=== PATIENT | male | born 1985 | race Caucasian/White ===

== ENCOUNTER 2019-02-24 08:46 | Inpatient (IN) | payer SELFPAY | END 2019-02-27 14:15 | disposition home or self-care (01) | DRG 885 | PROVIDERS: Family Provider Nurse Practitioner Family | DX: F22 Delusional disorders (principal); R45.851 Suicidal ideations; Z76.5 Malingerer [conscious simulation]; F60.2 Antisocial personality disorder; Z28.21 Immunization not carried out because of patient refusal ==

== ENCOUNTER 2019-03-03 17:40 | Emergency (ER) | payer SELFPAY | END 2019-03-03 20:48 | disposition home or self-care (01) | PROVIDERS: Family Provider Nurse Practitioner Family | DX: J06.9 Acute upper respiratory infection, unspecified (principal); J01.90 Acute sinusitis, unspecified; J45.909 Unspecified asthma, uncomplicated; F17.210 Nicotine dependence, cigarettes, uncomplicated; Z88.0 Allergy status to penicillin | CPT/HCPCS: 36415; 71045; 80053; 85025; 96372; 99284; J0696; J2001; J2930 ==

== ENCOUNTER 2019-03-19 19:27 | Emergency (ER) | payer MEDICAID, SELFPAY ==
[2019-03-19 19:36] VITALS: BP 146/86; PULSE 125; RESP 18; TEMP 36.6; O2SAT 96; BMI 27.3
--- NOTE | 2019-03-19 19:40 | ED_ITS ---
Entered by Sia Castro, acting as scribe for George Reyes MD HPI - Psych General: Chief Complaint: Seizure Stated Complaint: SEIZURE Time Seen by Provider: 03/19/19 19:39 Source: patient and EMS Mode of arrival: EMS Limitations: no limitations History of Present Illness: HPI Narrative: 33 y/o male presents to the ED with reported seizure. Nurse reported he was lying in still in bed and then proceeded to start shaking. Upon exam pt is sitting up in bed, holding his hand out and looking at the ceiling. Pt states he cannot talk. Pt is very anxious. complaint: other (anxiety) Onset (ago): minute(s) Relieving factors: none Exacerbating factors: none Associated psychiatric symptoms: other Treatments prior to arrival: none Review of Systems Const: Denies: fever or chills Eyes: Denies: change in vision ENMT: Denies: throat pain or mouth pain Card: Denies: chest pain Resp: Denies: shortness of breath GI: Denies: abdominal pain, nausea, vomiting or diarrhea Musc: Denies: back pain or joint pain Skin/Breast: Denies: rash Neuro: Denies: headache Psych: Reports: anxiety Endo: Denies: excessive urination Colt/Lymph: Denies: easy bruising All/Imm: Denies: hives PFSH ED PFSH: Statuses (acute, chronic, etc) shown below reflect problem list status as previously entered and may not be historically accurate Family History (Updated 03/04/19 @ 15:29 by Bety Mahoney LPN) Other Drug abuse Social History (Updated 03/04/19 @ 15:30 by Bety Mahoney LPN) Smoking and tobacco status: current every day smoker Alcohol intake: unknown Current occupational status: disabled Current gender identity: Male Financial difficulty paying for basics: Very Hard Physical Exam Const: COMMON NORMALS: no apparent distress and healthy appearing HENMT: COMMON NORMALS: normocephalic and external nose normal HEAD & SCALP: normocephalic NOSE: external nose normal Eye: COMMON NORMALS: PERRL PUPIL: Yes PERRL Neck/C-Spine: COMMON NORMALS: full ROM and no lymphadenopathy Chest: COMMONS NORMALS: inspection of chest normal Resp: COMMON NORMALS: normal respiratory effort, no use of accessory muscles and clear to auscultation bilaterally AUSCULTATION: clear to auscultation bilaterally Cardio: COMMON NORMALS: regular rate and regular rhythm RATE: regular rate RHYTHM: regular rhythm GI: COMMON NORMALS: normal to inspection, nondistended, normoactive bowel sounds, soft to palpation, non-tender and no masses PALPATION: Yes soft Back/Pelvis: THORACIC SPINE/UPPER BACK: Yes normal to inspection Extremity: COMMON NORMALS: normal to inspection, full ROM and normal capillary refill Psych: APPEARANCE: Yes unkempt and Yes disheveled MOOD & AFFECT: Yes anxious Skin: COMMON NORMALS: no rashes or lesions noted GENERAL SKIN EXAM: no rashes or lesions noted MDM - Psych MDM Narrative: Medical decision making narrative: Patient presents here with seizure. Here he had a supposed seizure but never had LOC during a seizure. Patient feels improved after Ativan and will refill his Keppra. Patient is stable for discharge. Discharge Plan Discharge Patient Disposition: Home, Self-Care Clinical Impression: Generalized seizure Condition: Stable Prescriptions: New Keppra 500 mg tablet 500 mg PO BID 14 Days Qty: 28 RF: 0 No Action diazepam 5 mg tablet 5 mg PO BID RF: 0 gabapentin 300 mg capsule 600 mg PO TID RF: 0 hydrocodone-acetaminophen [[place]] 5-325 mg tablet 1 tab PO Q6H PRNRF: 0 metoprolol tartrate 25 mg tablet 25 mg PO BID RF: 0 paliperidone 3 mg tablet extended release 24hr 3 mg PO QAM RF: 0 Discharge Orders: Discharge Order (Routine); Ordered 03/19/19 Ordered By: George Reyes Referrals: Lalitha Chaney FNP-C [Primary Care Provider] - Discharge Diet: Advance as tolerated Discharge Activity: Resume usual activity Patient Instructions: Recurrent Seizures Adult (ED) Coding Level of Care Code ED Market Research Analyst for Chg Fwd Exam Problem Focused The documentation recorded by the Matthew oneal Ashley, accurately reflects the service I personally performed and the decisions made by , George Reyes MD
--- NOTE | 2019-03-19 19:55 | PC.NURSE ---
Informed both doctor and charge nurse that the patient stated that his seizure ended. Patient was upset and was able to help calm him down.
[2019-03-19] MEDS: LORazepam 1 mg Tablet PO (20:08)
== END 2019-03-19 20:17 | disposition home or self-care (01) ==
LOC: ER 19:59
PROVIDERS: Emergency Provider Emergency Medicine; Family Provider Nurse Practitioner Family; PCP Nurse Practitioner Family
DX: G40.89 Other seizures (principal); F17.210 Nicotine dependence, cigarettes, uncomplicated
CPT/HCPCS: 99281; 99283

== ENCOUNTER 2019-03-24 10:57 | Emergency (ER) | payer MEDICAID, SELFPAY ==
[2019-03-24 10:57] VITALS: PULSE 103
[2019-03-24 10:58] VITALS: PULSE 103; RESP 18; O2SAT 96; BMI 22.1
--- NOTE | 2019-03-24 11:02 | ED_ITS ---
Entered by Carol Mancini, acting as scribe for George Reyes MD HPI - Seizure General: Chief Complaint: Seizure Stated Complaint: Seizure activity Source: patient Mode of arrival: EMS Limitations: no limitations History of Present Illness: HPI Narrative: 33 yo Male presents to ED with complaint of seizures. Pt states that he was seen the other day and written the wrong prescriptions. Pt states that he is supposed to be on Neurontin and Valium for his seizures. MD complaint: seizure Trauma: No Seizure History: Yes Possible Precipitating Event: none Associated symptoms: Deny chest pain, chills or fever(s) Review of Systems Const: Denies: fever or chills Eyes: Denies: change in vision ENMT: Denies: throat pain or mouth pain Card: Denies: chest pain Resp: Denies: shortness of breath GI: Denies: abdominal pain, nausea, vomiting or diarrhea Musc: Denies: back pain or joint pain Skin/Breast: Denies: rash Neuro: Denies: headache or behavioral changes Psych: Denies: depression Endo: Denies: excessive urination Colt/Lymph: Denies: easy bruising All/Imm: Denies: hives PFSH ED PFSH: Statuses (acute, chronic, etc) shown below reflect problem list status as previously entered and may not be historically accurate Family History Other Drug abuse Social History Smoking and tobacco status: current every day smoker Alcohol intake: unknown Current occupational status: disabled Current gender identity: Male Financial difficulty paying for basics: Very Hard Physical Exam Const: COMMON NORMALS: no apparent distress, oriented x3 and healthy appearing HENMT: COMMON NORMALS: normocephalic and external nose normal HEAD & SCALP: normocephalic NOSE: external nose normal Eye: COMMON NORMALS: PERRL PUPIL: Yes PERRL Neck/C-Spine: COMMON NORMALS: full ROM and no lymphadenopathy Chest: COMMONS NORMALS: inspection of chest normal Resp: COMMON NORMALS: normal respiratory effort, no use of accessory muscles and clear to auscultation bilaterally AUSCULTATION: clear to auscultation bilaterally Cardio: COMMON NORMALS: regular rate and regular rhythm RATE: regular rate RHYTHM: regular rhythm GI: COMMON NORMALS: normal to inspection, nondistended, normoactive bowel sounds, soft to palpation, non-tender and no masses PALPATION: Yes soft Back/Pelvis: THORACIC SPINE/UPPER BACK: Yes normal to inspection Extremity: COMMON NORMALS: normal to inspection, full ROM and normal capillary refill Neuro: COMMON NORMALS: oriented x3 Psych: COMMON NORMALS: mental status grossly normal and cooperative Skin: COMMON NORMALS: no rashes or lesions noted GENERAL SKIN EXAM: no rashes or lesions noted Course Vital Signs: Vital signs: Vital Signs Pulse Rate 103 H 03/24/19 10:58 Respiratory Rate 18 03/24/19 10:58 Pulse Oximetry 96 03/24/19 10:58 MDM - Seizure MDM Narrative: Medical decision making narrative: Patient presents here with a possible seizure. He is well-appearing here and has no sign of seizure activity here and is not altered. Patient given Versed in route. Patient is stable for discharge and is to follow-up with primary care doctor in 3 to 5 days and return if worsening. Discharge Plan Discharge Patient Disposition: Home, Self-Care Clinical Impression: Generalized seizure Condition: Stable Prescriptions: New Neurontin 600 mg tablet 600 mg PO TID Qty: 90 RF: 0 No Action diazepam 5 mg tablet 5 mg PO BID RF: 0 gabapentin 300 mg capsule 600 mg PO TID RF: 0 hydrocodone-acetaminophen [[place]] 5-325 mg tablet 1 tab PO Q6H PRNRF: 0 metoprolol tartrate 25 mg tablet 25 mg PO BID RF: 0 paliperidone 3 mg tablet extended release 24hr 3 mg PO QAM RF: 0 Keppra 500 mg tablet 500 mg PO BID 14 Days Qty: 28 RF: 0 Discharge Orders: Discharge Order (Routine); Ordered 03/24/19 Ordered By: George Reyes Referrals: Lalitha Chaney FNP-C [Primary Care Provider] - 4-7 days Discharge Diet: Advance as tolerated Discharge Activity: Resume usual activity Patient Instructions: Recurrent Seizures Adult (ED) Discharge Date/Time: 03/24/19 11:23 Coding Level of Care Code ED Visual Education Teacher for Chg Fwd Exam Problem Focused The documentation recorded by the Addis oneal Carmen, accurately reflects the service I personally performed and the decisions made by Amy carpio Korby, MD
--- NOTE | 2019-03-24 11:29 | PC.NURSE ---
Patient was at his aunts home when he began to have a seizure. Aunt reports that patient has had 4 seizures at home. THen he had an additional 4 seizures on the ambulance per EMS. Patient states that he was prescribed valium for his seizures by the psychiatrist in the [facility] but he lost his prescription and has been unable to get more. Patient asking for RX for Valium, Ativan, and Gabapentin at this time.
== END 2019-03-24 11:23 | disposition home or self-care (01) ==
LOC: ER 11:29
PROVIDERS: Emergency Provider Emergency Medicine; Family Provider Nurse Practitioner Family; PCP Nurse Practitioner Family
DX: G40.89 Other seizures (principal); F17.210 Nicotine dependence, cigarettes, uncomplicated
CPT/HCPCS: 99282

== ENCOUNTER 2019-03-28 10:37 | Emergency (ER) | payer MEDICAID, SELFPAY ==
[2019-03-28 11:08] VITALS: BP 137/97; PULSE 85; RESP 16; TEMP 36.8; O2SAT 98; BMI 24.4
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
== END 2019-03-28 12:08 | disposition home or self-care (01) ==
PROVIDERS: Emergency Provider Emergency Medicine; Family Provider Nurse Practitioner Family; PCP Nurse Practitioner Family
DX: G40.89 Other seizures (principal); Z87.891 Personal history of nicotine dependence
CPT/HCPCS: 99282

== ENCOUNTER 2019-04-08 04:05 | Emergency (ER) | payer MEDICAID, SELFPAY ==
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
[2019-04-08 04:15] VITALS: BP 120/70; PULSE 100; RESP 18; O2SAT 98
--- NOTE | 2019-04-08 04:22 | PC.NURSE ---
pt refuses to answer admission questions states we know him pt easily agitated. denies si/hi at this time. pt reports pain from hip fx but refuses to describe duration or intensity . jairon phillips.
--- NOTE | 2019-04-08 04:24 | PC.NURSE ---
toradol and dex taken to room. pt refuses meds stating I dont know what you put in those. states he is now suicidal and wishes to be admitted to [facility] and have hip evaluated up there. pt informed there is no avail beds on [facility] therefore we would need to transfer to another facility possible to another state. pt states I dont care i have medicaid. pt informed medicaid does not usually cover services in other states. pt states he doesnt care he is homeless. Dr Reyes aware of pt statements
[2019-04-08 04:49] LABS: Basophils # 0.1 10^3/uL (0.0-0.1); Basophils % 1.1 %; Eosinophils # 0.2 10^3/uL (0.0-0.8); Eosinophils % 3.2 %; Hemoglobin 16.4 g/dL (11.7-16.6); Lymphocytes % 48.1 %; Mean Corpuscular HGB Conc 30.9 g/dL (30.0-36.0); Mean Corpuscular Hemoglobin 29.4 pg (28.0-34.0); Mean Corpuscular Volume 95.2 fL (80-94); Mean Platelet Volume 11.9 fL (7.4-10.4); Monocytes % 16.9 %; Neutrophils # 1.9 10^3/uL (1.8-7.7); Neutrophils % 30.1 %; Nucleated Red Blood Cells % 0 %; Red Blood Count 5.57 10^6/uL (4.1-5.3); Red Cell Distribution Width 11.5 % (12.1-15.1); White Blood Count 6.2 10^3/uL (4.0-10.0)
[2019-04-08 05:12] LABS: Platelet Count 23 10^3/cmm (130-400)
[2019-04-08 05:13] LABS: Slide Review Slide Review Perform
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
[2019-04-08 05:40] LABS: Basophils # 0.1 10^3/uL (0.0-0.1); Basophils % 1.3 %; Eosinophils # 0.2 10^3/uL (0.0-0.8); Hematocrit 45.6 % (42.0-52.0); Hemoglobin 14.9 g/dL (11.7-16.6); Lymphocytes # 3.3 10^3/uL (0.8-4.8); Lymphocytes % 46.7 %; Mean Corpuscular HGB Conc 32.7 g/dL (30.0-36.0); Mean Corpuscular Hemoglobin 29.9 pg (28.0-34.0); Mean Corpuscular Volume 91.4 fL (80-94); Mean Platelet Volume 8.9 fL (7.4-10.4); Monocytes # 1.3 10^3/uL (0.2-0.9); Monocytes % 18.6 %; Neutrophils # 2.1 10^3/uL (1.8-7.7); Neutrophils % 29.8 %; Nucleated Red Blood Cells % 0 %; Platelet Count 304 10^3/cmm (130-400); Red Blood Count 4.99 10^6/uL (4.1-5.3); Red Cell Distribution Width 11.6 % (12.1-15.1); White Blood Count 7.1 10^3/uL (4.0-10.0)
[2019-04-08] MEDS: ketamine 100 mg/mL Inj 5 mL 300 MG IM (05:45)
[2019-04-08 06:01] LABS: Alanine Aminotransferase 51 U/L (0-41); Albumin Level 4.5 g/dL (3.5-5.2); Alkaline Phosphatase 100 IU/L (40-130); Anion Gap 16.8 (5-19); Aspartate Amino Transferase 28 U/L (0-40); Blood Urea Nitrogen 6 mg/dL (6-20); Calcium 9.5 mg/dL (8.5-10.5); Carbon Dioxide 23 mmol/L (22-29); Chloride 102 mmol/L (98-107); Glomerular Filtration Rate 157.1 mL/min (90-130); Glucose 119 mg/dL (74-109); Potassium 3.8 mmol/L (3.5-5.1); Salicylate 0.5 mg/dL (3-10); Sodium 138 mmol/L (136-145); Total Bilirubin 0.3 mg/dL (0.15-1.2); Total Protein 7.5 g/dL (6.6-8.7)
[2019-04-08 06:08] VITALS: BP 149/98; PULSE 101; RESP 23; O2SAT 97
[2019-04-08] MEDS: LORazepam 2 mg/mL INJ 1 mL IM (06:13)
[2019-04-08 06:28] LABS: Acetaminophen < 5.0 ug/mL (10-30); Alcohol Level < 10 mg/dL (0-10)
[2019-04-08 06:31] LABS: Barbiturates Screen Urine Negative (Negative); Benzodiazepines Screen Urine Negative (Negative); Cocaine Screen Urine Negative (Negative); Opiate Screen Urine Negative (Negative); PCP Screen Urine Negative (Negative); THC Screen Urine Positive (Negative)
[2019-04-08 06:36] LABS: Amphetamines Screen Urine Positive (Negative)
--- NOTE | 2019-04-08 07:24 | PC.NURSE ---
Pt sleeping in bed after ketamine was given by previous shift.
--- NOTE | 2019-04-08 09:26 | PC.NURSE ---
Pt still sleeping. Sitter at doorway
--- NOTE | 2019-04-08 11:15 | PC.NURSE ---
Patient resting quietly at this time. No complaints noted. Patient denies any needs.
--- NOTE | 2019-04-08 11:21 | PC.NURSE ---
Patient sleeping. Resps even and nonlabored, no distress is noted. Sitter present. No concerns noted
--- NOTE | 2019-04-08 12:51 | PC.NURSE ---
Patient awaking from sleep very agitated. Stating that he is going to kill the doctor and staff that gave him the Ketamine. Patient continues cursing and yelling at staff. Security at bedside.
--- NOTE | 2019-04-08 12:55 | PC.NURSE ---
Security remains at bedside with nurses. Patient offered food and drink, patient declines stating that we just want to starve him and that they only way he taking food from us is if he is force fed Patient continues to yell and curse at staff members, verbalizing that he wants us all to and that he wishes to . Pt states I want to , right now, I might start the process right here. I will start bashing my head into the wall Nurse and security remain at bedside with patient. Patient now appears calm, no interventions performed. Resting with eyes closed.
--- NOTE | 2019-04-08 13:04 | PC.NURSE ---
Dr. Mccray at bedside with patient.
[2019-04-08 13:40] VITALS: PULSE 113; RESP 20; O2SAT 97
== END 2019-04-08 13:53 | disposition home or self-care (01) ==
PROVIDERS: Emergency Medicine; Emergency Provider Family Medicine; Family Provider Nurse Practitioner Family; PCP Nurse Practitioner Family
DX: R45.851 Suicidal ideations (principal); M25.552 Pain in left hip; G89.29 Other chronic pain; F17.200 Nicotine dependence, unspecified, uncomplicated
CPT/HCPCS: 36415; 80053; 80307; 85025; 96372; 99284; J2060

== ENCOUNTER 2019-04-08 19:53 | Emergency (ER) | payer MEDICAID, SELFPAY ==
[2019-04-08 20:22] VITALS: BP 137/89; PULSE 127; RESP 16; TEMP 36.4; O2SAT 99
--- NOTE | 2019-04-08 20:29 | W.ED.PSYCH ---
HPI - Psych General: Chief Complaint: Psychiatric Symptoms Stated Complaint: si Time Seen by Provider: 04/08/19 20:22 Source: patient Mode of arrival: ambulatory Limitations: no limitations History of Present Illness: HPI Narrative: Thien is a 33-year-old male who states that he is suicidal. He states he wants a place to stay. He was seen here yesterday for the same and was seen in the ER by Dr. Mccray and medically cleared and had to be escorted out of the building. Patient has no specific plan. Associated symptoms: Reports depression Review of Systems Const: Denies: fever, chills, body aches or change in appetite Eyes: Denies: blurry vision or eye discomfort ENMT: Denies: throat pain or dental pain Card: Denies: chest pain Resp: Denies: shortness of breath GI: Denies: abdominal pain, nausea, vomiting or diarrhea : Denies: painful urination Musc: Denies: neck pain or back pain Skin/Breast: Denies: rash Neuro: Denies: headache Psych: Reports: depression Colt/Lymph: Denies: easy bruising All/Imm: Denies: hives PFSH ED PFSH: Statuses (acute, chronic, etc) shown below reflect problem list status as previously entered and may not be historically accurate Social History Smoking and tobacco status: current every day smoker Alcohol intake: unknown Current occupational status: disabled Current gender identity: Male Financial difficulty paying for basics: Very Hard Physical Exam Const: COMMON NORMALS: no apparent distress, oriented x3 and healthy appearing HENMT: COMMON NORMALS: normocephalic and head/scalp atraumatic HEAD & SCALP: normocephalic and atraumatic Eye: COMMON NORMALS: PERRL PUPIL: Yes PERRL Neck/C-Spine: COMMON NORMALS: full ROM and supple Chest: COMMONS NORMALS: inspection of chest normal Resp: COMMON NORMALS: normal respiratory effort and no use of accessory muscles Cardio: COMMON NORMALS: regular rate RATE: regular rate Extremity: COMMON NORMALS: normal to inspection and full ROM Neuro: COMMON NORMALS: oriented x3 and moves all extremities Psych: COMMON NORMALS: mental status grossly normal and cooperative Skin: COMMON NORMALS: no rashes or lesions noted and no wounds GENERAL SKIN EXAM: no rashes or lesions noted MDM - Psych MDM Narrative: Medical decision making narrative: Patient presents with depression and claims to be suicidal. I called Dr. Mccray of psychiatry who is seen him this afternoon. Dr. Mccray states that he is not suicidal and he will not admit him to the psychiatric unit here. I do not believe that he is truly suicidal either and is using Mrs. [facility]ard is a place to stay. Patient stable for discharge as Dr. Mccray deems him not suicidal. Discharge Plan Discharge Patient Disposition: Home, Self-Care Clinical Impression: Depression Condition: Stable Prescriptions: No Action diazepam 5 mg tablet 5 mg PO BID RF: 0 gabapentin 300 mg capsule 600 mg PO TID RF: 0 hydrocodone-acetaminophen [[place]] 5-325 mg tablet 1 tab PO Q6H PRNRF: 0 metoprolol tartrate 25 mg tablet 25 mg PO BID RF: 0 paliperidone 3 mg tablet extended release 24hr 3 mg PO QAM RF: 0 Neurontin 600 mg tablet 600 mg PO TID Qty: 90 RF: 0 Invega 6 mg tablet extended release 24hr 6 mg PO DAILY Qty: 20 RF: 0 EC-Naprosyn 500 mg tablet,delayed release (DR/EC) 500 mg PO BID PRN (Reason: pain) Qty: 20 RF: 0 Discharge Orders: Discharge Order (Routine); Ordered 04/08/19 Ordered By: George Reyes Referrals: Lalitha Chaney FNP-C [Primary Care Provider] - Discharge Diet: Advance as tolerated Discharge Activity: Resume usual activity Patient Instructions: Depression (ED) Coding Level of Care Code ED Director Of Workforce Development for Yokasta Bush
--- NOTE | 2019-04-08 20:29 | PC.NURSE ---
PATIENT WAS SCREENED IN THE TRIAGE ROOM VIA DR. MALIK. DR. MALIK EXPLAINED THAT PATIENT WAS SEEN BY DR VIDALES THIS MORNING AND WAS MEDICALLY SCREENED AND RELEASED. DR. MALIK SPOKE TO SOBEIDA VIA PHONE ABOUT PATIENT CHECKING IN FOR SI, AND SOBEIDA EXPLAINED THAT HE RELEASED PATIENT THIS MORNING. PATIENT BEGAN IRRITATED WITH NURSING STAFF AND PROVIDER, STATED WELL, I'LL KEEP CHECKING IN THEN ALL NIGHT UNTIL YOU ADMIT ME, I HAVE NO WHERE TO GO AND WOULD RATHER GO TO HALFWAY . PATIENT THEN LEFT TRIAGE ROOM, YELLING AT NURSING STAFF ABOUT NOT BEING SCREENED. BASSEM WRAY NOTIFIED.
== END 2019-04-08 20:41 | disposition home or self-care (01) ==
LOC: ER 21:38
PROVIDERS: Emergency Provider Emergency Medicine; Family Provider Nurse Practitioner Family; PCP Nurse Practitioner Family
DX: F32.9 Major depressive disorder, single episode, unspecified (principal); F17.200 Nicotine dependence, unspecified, uncomplicated
CPT/HCPCS: 99281

== ENCOUNTER 2019-04-11 22:26 | Emergency (ER) | payer MEDICAID, SELFPAY ==
[2019-04-11 22:39] VITALS: BP 128/96; PULSE 120; RESP 16; TEMP 36.6; O2SAT 99; BMI 25.7
--- NOTE | 2019-04-11 23:04 | W.ED.PSYCH ---
HPI - Psych General: Chief Complaint: Psychiatric Symptoms Stated Complaint: SUICIDAL THOUGHTS Time Seen by Provider: 04/11/19 22:41 Source: patient Mode of arrival: ambulatory Limitations: no limitations History of Present Illness: HPI Narrative: Patient is a 33-year-old male well-known to the emergency department here for complaints of suicidal ideations for the past 3 days. Patient reports no specific plan currently. He denies homicidal ideations, auditory or visual hallucinations. MD complaint: suicidal ideation Duration: constant History of same: Yes Relieving factors: none Exacerbating factors: none Associated symptoms: Reports depression and suicidal ideation; Deny auditory hallucinations, visual hallucinations or homicidal ideation Review of Systems Const: Denies: fever or chills Card: Denies: chest pain, palpitations, lightheadedness or syncope Resp: Denies: shortness of breath GI: Denies: abdominal pain, nausea, vomiting or diarrhea Skin/Breast: Denies: rash Neuro: Denies: headache Psych: Reports: depression and suicidal ideation; Denies: mood swings, panic attacks, hopelessness, loss of interest, paranoia, visual hallucinations, auditory hallucinations or homicidal ideation PFSH ED PFSH: Statuses (acute, chronic, etc) shown below reflect problem list status as previously entered and may not be historically accurate Social History Smoking and tobacco status: current every day smoker Alcohol intake: unknown Current occupational status: disabled Current gender identity: Male Financial difficulty paying for basics: Very Hard Physical Exam Const: COMMON NORMALS: no apparent distress, oriented x3, no limitations, alert and well nourished GENERAL APPEARANCE: cooperative ORIENTATION/CONSCIOUSNESS: Yes oriented to person, Yes oriented to place and Yes oriented to time Resp: COMMON NORMALS: normal respiratory effort and clear to auscultation bilaterally AUSCULTATION: clear to auscultation bilaterally Cardio: COMMON NORMALS: regular rate and regular rhythm RATE: regular rate RHYTHM: regular rhythm Neuro: COMMON NORMALS: oriented x3 SENSORIUM/ORIENTATION: Yes alert, Yes oriented to person, Yes oriented to place and Yes oriented to time Psych: COMMON NORMALS: mental status grossly normal, thought process normal, cooperative, affect normal, speech normal and activity/motor behavior normal ACTIVITY/MOTOR BEHAVIOR: Yes appropriate eye contact and No psychomotor agitation SPEECH: Yes normal speech THOUGHT PROCESS: normal thought process MEMORY/COGNITION: Yes memory grossly intact and Yes cognition grossly intact INSIGHT: insight good JUDGEMENT: judgment good MDM - Psych MDM Narrative: Medical decision making narrative: After telling the patient that Dr. Mccray is not willing to accept him to [facility] at this time, patient takes the bandanna that he is wearing around his neck and tries to choke himself with it, making his face turn red. Patient the entire time he is doing this, he is speaking with myself as well as the security operations center analyst and obviously not producing any form of anoxia. [facility] was contacted by security operations center analyst to escort patient off the premises but pt ended up leaving with our security operations center analyst. Dr. Guerrero was consulted upon pts arrival and after I spoke to Dr. Mccray and agrees with our plan for discharge. Discharge Plan Discharge Patient Disposition: Home, Self-Care Clinical Impression: Malingering Condition: Stable Prescriptions: No Action diazepam 5 mg tablet 5 mg PO BID RF: 0 gabapentin 300 mg capsule 600 mg PO TID RF: 0 hydrocodone-acetaminophen [[place]] 5-325 mg tablet 1 tab PO Q6H PRNRF: 0 metoprolol tartrate 25 mg tablet 25 mg PO BID RF: 0 paliperidone 3 mg tablet extended release 24hr 3 mg PO QAM RF: 0 Neurontin 600 mg tablet 600 mg PO TID Qty: 90 RF: 0 Invega 6 mg tablet extended release 24hr 6 mg PO DAILY Qty: 20 RF: 0 EC-Naprosyn 500 mg tablet,delayed release (DR/EC) 500 mg PO BID PRN (Reason: pain) Qty: 20 RF: 0 Discharge Orders: Discharge Order (Routine); Ordered 04/11/19 Ordered By: Negin Sims Referrals: Lalitha Chaney FNP-C [Primary Care Provider] - Discharge Date/Time: 04/11/19 22:56 Coding Level of Care Code ED Project Mgr for Chg Fwd Exam Problem Focused
--- NOTE | 2019-04-11 23:06 | PC.NURSE ---
Patient became very upset when ED PA informed patient that Psychiatrist Mahendra refused to admit patient. Patient was non compliant with [facility]'s SI Protocol.
== END 2019-04-11 22:56 | disposition home or self-care (01) ==
LOC: ER 22:59
PROVIDERS: Emergency Provider Physician Assistant; Family Provider Nurse Practitioner Family; PCP Nurse Practitioner Family
DX: Z76.5 Malingerer [conscious simulation] (principal); F17.210 Nicotine dependence, cigarettes, uncomplicated
CPT/HCPCS: 99281

== ENCOUNTER 2019-04-12 07:19 | Emergency (ER) | payer MEDICAID, SELFPAY ==
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
[2019-04-12 07:21] VITALS: BP 126/84; PULSE 126; RESP 17; TEMP 36.3; O2SAT 99; BMI 22.9
--- NOTE | 2019-04-12 07:28 | XR_ITS ---
WS: [id number] ONE VIEW CHEST HISTORY: 33 years old Male with cough AP upright chest comparison 03/03/2019 FINDINGS: Lungs are clear and well aerated. Costophrenic angles are sharp. Heart size and pulmonary vascular ma rkings unremarkable. No subdiaphragmatic free air. No evidence of fracture or destruction. XR/XR chest 1V portable [id number] IMPRESSION: No acute cardiopulmonary findings, and no significant change from 03/03/2019.
[2019-04-12 07:51] VITALS: PULSE 104; RESP 18; O2SAT 98
[2019-04-12] MEDS: ipratropium-albuterol 3 mL Neb INHALATION (07:51)
[2019-04-12 07:54] LABS: Basophils # 0.1 10^3/uL (0.0-0.1); Basophils % 0.9 %; Eosinophils # 0.1 10^3/uL (0.0-0.8); Eosinophils % 1.1 %; Hemoglobin 15.6 g/dL (11.7-16.6); Lymphocytes # 2.7 10^3/uL (0.8-4.8); Lymphocytes % 29.7 %; Mean Corpuscular HGB Conc 31.8 g/dL (30.0-36.0); Mean Corpuscular Hemoglobin 29.8 pg (28.0-34.0); Mean Corpuscular Volume 93.5 fL (80-94); Mean Platelet Volume 8.9 fL (7.4-10.4); Monocytes # 1.3 10^3/uL (0.2-0.9); Monocytes % 14.4 %; Neutrophils # 4.8 10^3/uL (1.8-7.7); Neutrophils % 53.5 %; Nucleated Red Blood Cells % 0 %; Platelet Count 295 10^3/cmm (130-400); Red Blood Count 5.24 10^6/uL (4.1-5.3); Red Cell Distribution Width 11.8 % (12.1-15.1)
[2019-04-12 07:57] VITALS: PULSE 113
[2019-04-12 08:09] LABS: Alanine Aminotransferase 59 U/L (0-41); Albumin Level 4.5 g/dL (3.5-5.2); Alkaline Phosphatase 123 IU/L (40-130); Anion Gap 14.2 (5-19); Aspartate Amino Transferase 33 U/L (0-40); Blood Urea Nitrogen 20 mg/dL (6-20); Calcium 9.9 mg/dL (8.5-10.5); Carbon Dioxide 28 mmol/L (22-29); Chloride 101 mmol/L (98-107); Globulin 3.6 g/dL (1.3-4.6); Glomerular Filtration Rate 112.8 mL/min (90-130); Glucose 98 mg/dL (65-115); Potassium 4.2 mmol/L (3.5-5.1); Sodium 139 mmol/L (136-145); Total Bilirubin 0.2 mg/dL (0.15-1.2); Total Protein 8.1 g/dL (6.6-8.7)
[2019-04-12 08:22] LABS: Influenza A by IFA Negative (Negative); Influenza B by IFA Negative (Negative)
== END 2019-04-12 12:06 | disposition home or self-care (01) ==
PROVIDERS: Emergency Provider Family Medicine; Family Provider Nurse Practitioner Family; PCP Nurse Practitioner Family
DX: J40 Bronchitis, not specified as acute or chronic (principal); R45.851 Suicidal ideations; Z86.19 Personal history of other infectious and parasitic diseases; F17.210 Nicotine dependence, cigarettes, uncomplicated
CPT/HCPCS: 36415; 71045; 80053; 85025; 87804; 94640; 99282; 99283

== ENCOUNTER 2021-09-04 13:09 | Emergency (ER) | payer MEDICAID, SELFPAY ==
[2021-09-04 13:21] VITALS: BP 138/82; PULSE 109; RESP 18; TEMP 36.8; O2SAT 96; BMI 30.7
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
[2021-09-04 13:44] VITALS: BP 138/82; PULSE 109; RESP 18; TEMP 36.8; O2SAT 96
[2021-09-04] MEDS: ketorolac 30 mg/mL INJ IM (13:47)
[2021-09-04 13:48] VITALS: BP 138/82; PULSE 109; RESP 18; TEMP 36.8; O2SAT 96
== END 2021-09-04 13:50 | disposition home or self-care (01) ==
PROVIDERS: Emergency Provider Emergency Medicine; PCP Nurse Practitioner Family
DX: M79.605 Pain in left leg (principal); Z86.19 Personal history of other infectious and parasitic diseases; F17.210 Nicotine dependence, cigarettes, uncomplicated
CPT/HCPCS: 96372; 99284; J1885

== ENCOUNTER → 2021-09-06 15:26 | Outpatient (BNVA) | payer MEDICAID, SELFPAY | PROVIDERS: PCP Nurse Practitioner Family; Visit Provider Family Medicine | DX: M25.562 Pain in left knee (principal); G89.29 Other chronic pain; G40.909 Epilepsy, unspecified, not intractable, without status epilepticus; Z76.89 Persons encountering health services in other specified circumstances | CPT/HCPCS: 80053; 80061; 85025; 86803 ==

== ENCOUNTER → 2021-09-07 16:29 | Outpatient (BNVA) | payer MEDICAID, SELFPAY | PROVIDERS: PCP Nurse Practitioner Family; Visit Provider Family Medicine | DX: M25.562 Pain in left knee (principal); G89.29 Other chronic pain; G40.909 Epilepsy, unspecified, not intractable, without status epilepticus; Z76.89 Persons encountering health services in other specified circumstances | CPT/HCPCS: 87522 ==

== ENCOUNTER 2021-10-12 13:46 | Inpatient (IN) | payer MEDICAID, SELFPAY ==
[2021-10-12 14:10] VITALS: BP 117/65; PULSE 116; RESP 14; TEMP 37.1; O2SAT 97; BMI 26.7
--- NOTE | 2021-10-12 14:37 | XR_ITS ---
WS: [id number] XR chest 1V portable [id number] REASON FOR EXAM: dyspnea FINDINGS: The chest is unchanged compared to 10/23/2019. The heart and mediastinum are within normal limits. Calcified granulomatous disease bilaterally. No lung mass or significant lung nodule. No acute pulmonary parenchymal or pleural abnormality. XR/XR chest 1V portable [id number] IMPRESSION: Stable chest with no acute abnormality.
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
--- NOTE | 2021-10-12 14:56 | US_ITS ---
WS: [id number] SCROTAL ULTRASOUND EXAMINATION CLINICAL INFORMATION: R sided testing pain COMPARISON: None. FINDINGS: TESTES Normal in size and echotexture, without focal lesion. Color Doppler: Normal color Doppler flow pattern. Right testes size: 4.7 cm x 2.8 cm x 3.0 cm. Left testes size: 4.8 cm x 2.8 cm x 2.3 cm. EPIDIDYMIDES Markedly enlarged RIGHT epididymis with diffuse edema and increased vascularity compatible with epidi dymitis. Right epididymis size difficult to measure due to marked enlargement. In addition, increased vascularity LEFT epididymis also suspicious for epididymitis. Left epididymis size: 2.0 cm x 2.4 cm x 1.5 cm. HYDROCELE Small bilateral VARICOCELE None. OTHER FINDINGS None. US/US scrotum [id number] IMPRESSION: 1. Findings compatible with epididymitis RIGHT greater than LEFT. 2. Small bilateral hydroceles. Diffuse scrotal edema skin thickening RIGHT gre ater than LEFT. 3. No abscess. 4. No evidence of orchitis.
--- NOTE | 2021-10-12 15:01 | ECG_ITS ---
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 Measurements Intervals [place] Rate: 103 P: 55 WA: 126 QRS: 17 QRSD: 94 T: 61 QT: 321 QTc: 422 Interpretive Statements SINUS TACHYCARDIA POSSIBLE RIGHT VENTRICULAR CONDUCTION DELAY [RSR (QR) IN V1/V2] Compared to ECG 02/09/2019 14:03:55 T-wave abnormality no longer present Electronically Signed On 10-13-2021 18:44:44 CDT by Cleopatra Bunn M.D. [id number]
[2021-10-12] MEDS: LORazepam 1 mg Tablet PO (15:04)
[2021-10-12 15:17] LABS: Basophils # 0.1 10^3/uL (0.0-0.1); Basophils % 0.4 %; Eosinophils # 0.1 10^3/uL (0.0-0.8); Hematocrit 47.1 % (42.0-52.0); Hemoglobin 15.4 g/dL (11.7-16.6); Lymphocytes # 1.4 10^3/uL (0.8-4.8); Lymphocytes % 10.7 %; Mean Corpuscular HGB Conc 32.7 g/dL (30.0-36.0); Mean Corpuscular Hemoglobin 31.5 pg (28.0-34.0); Mean Corpuscular Volume 96.3 fl (80-94); Mean Platelet Volume 9.9 fL (7.4-10.4); Monocytes # 1.1 10^3/uL (0.2-0.9); Monocytes % 8.3 %; Neutrophils # 9.95 10^3/uL (1.8-7.7); Neutrophils % 79.1 %; Nucleated Red Blood Cells % 0 %; Platelet Count 213 10^3/cmm (130-400); Red Blood Count 4.89 10^6/uL (4.1-5.3); Red Cell Distribution Width 12.3 % (12.1-15.1); White Blood Count 12.6 10^3/uL (4.0-10.0)
[2021-10-12 15:47] LABS: SARS Covid-2 Antigen Negative (Negative)
[2021-10-12 16:10] LABS: Troponin(5th) Baseline 6 ng/L (0-15)
[2021-10-12 16:18] LABS: Acetaminophen < 5.0 ug/mL (10-30); Blood Urea Nitrogen 5 mg/dL (6-20); Calcium 9.3 mg/dL (8.5-10.5); Carbon Dioxide 24 mmol/L (22-29); Chloride 103 mmol/L (98-107); Creatinine Clr Calc Pharmacy 148.6408; Glomerular Filtration Rate 111.3 mL/min (90-130); Glucose 71 mg/dL (65-115); Osmolality Calculated 288 mOsm/kg (285-295); Salicylate < 0.3 mg/dL (3-10); Sodium 141 mmol/L (136-145)
[2021-10-12 16:21] LABS: Anion Gap 18.1 (5-19); Potassium 4.1 mmol/L (3.5-5.1)
[2021-10-12] MEDS: doxycycline 100 MG in sodium chloride 0.9% (plus) 100 ML IV (16:55)
[2021-10-12] MEDS: ketorolac 30 mg/mL INJ IVP (16:55)
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
[2021-10-12] MEDS: cefTRIAXone 500 mg SDV IM (17:38)
[2021-10-12 17:53] LABS: Amphetamines Screen Urine Negative (Negative); Barbiturates Screen Urine Negative (Negative); Benzodiazepines Screen Urine Negative (Negative); Cocaine Screen Urine Negative (Negative); Opiate Screen Urine Negative (Negative); PCP Screen Urine Negative (Negative); THC Screen Urine Positive (Negative)
[2021-10-12] MEDS: azithromycin 250 mg Tablet 1000 MG PO (18:00)
[2021-10-12 18:18] LABS: Bilirubin Urine Neg (Negative); Blood Urine Neg (Negative); Glucose Urine UA Norm (Normal); Ketones Urine Negative (Negative); Leukocyte Esterase Urine 1+ (Negative); Nitrate Urine Negative (Negative); Protein Urine Neg (Negative); Specific Gravity, Urine 1.015 (1.005-1.030); Sulfosalicylic Acid Urine Negative (Negative); Urine Appearance Cloudy (CLEAR); Urine Color Yellow (Yellow); Urobilinogen Urine 1 mg/dL (Negative); pH Urine 9 (5-7)
[2021-10-12 18:19] LABS: Amorphous Sediment Urine 1+ /hpf; Bacteria Urine 1+ /hpf; RBC Urine 0-4 /hpf (0-2); Squamous Epithelial Cell Urine 0-4 /hpf (0-5)
[2021-10-12 18:41] VITALS: RESP 18
[2021-10-12] MEDS: HYDROmorphone 1 mg/mL INJ 1 mL 0.5 MG IVP (18:41)
[2021-10-12 19:12] LABS: HIV 1 & 2 Antibody Non-Reactive (Non-Reactiv); HIV 1 & 2 Antigen Non-Reactive (Non-Reactiv)
[2021-10-12 20:10] VITALS: BP 155/81; PULSE 106; RESP 18; TEMP 36.9; O2SAT 97
[2021-10-12] MEDS: hyDROXYzine 25 mg Capsule 50 MG PO (20:31)
[2021-10-12] MEDS: nicotine 2 mg Gum BUCCAL (20:33)
[2021-10-12 20:47] VITALS: BP 155/81; PULSE 106; RESP 18; TEMP 36.9; O2SAT 97
[2021-10-12] MEDS: levETIRAcetam 500 mg Tablet 1000 MG PO (20:51)
[2021-10-12] MEDS: gabapentin 400 mg Capsule 1200 MG PO (20:51)
[2021-10-12] MEDS: baclofen 10 mg Tablet PO (21:20)
[2021-10-12] MEDS: nicotine 4 mg lozenge MUCOUS MEM (22:12)
[2021-10-13] MEDS: levoFLOXacin 500 mg Tablet PO (06:08)
[2021-10-13] MEDS: levETIRAcetam 500 mg Tablet 1000 MG PO (08:59)
[2021-10-13] MEDS: gabapentin 400 mg Capsule 1200 MG PO (08:59)
[2021-10-13] MEDS: nicotine 21 mg Patch 1 PATCH TRANSDERMA (08:59)
[2021-10-13] MEDS: baclofen 10 mg Tablet PO (09:00)
--- NOTE | 2021-10-13 09:46 | PC.OT ---
OT EVALUATION ATTEMPTED. PATIENT UNABLE TO STAY AWAKE FOR EVALUATION. WILL ATTEMPT AGAIN AT A LATER TIME.
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
[2021-10-13 14:00] VITALS: BP 121/73; PULSE 102
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
--- NOTE | 2021-10-14 06:57 | PC.NURSE ---
THIS NURSE WENT TO ATTEMPT TO GIVE MORNING MEDS AND LOOKED AT THE NAME INCORRECTLY. PT STATES, YOU ALL HAVEN'T BEEN GIVING IT TO ME THE WHOLE TIME I HAVE BEEN HERE SO I AIN'T TAKIN IT NOW. AND I DON'T TAKE THYROID MEDICINE. THIS NURSE STATED, I LOOKED AT THE NAME WRONG, THIS IS LEVOFLOXACIN, I AM SORRY. IT JUST CAME OUT WRONG. THIS IS AN ANTIBIOTIC ARE YOU ON AN ANTIBIOTIC? PT STATED, I AIN'T TAKIN IT. I HAVEN'T HAD MY MEDS SINCE I HAVE BEEN HERE BECAUSE YOU GUYS AREN'T GIVING THEM RIGHT SO I AIN'T TAKING ANYTHING. PT HOSTILE, BUT LYING IN BED WITH COVERS COVERING WHOLE BODY. Q15 MIN SAFETY CHECKS CONTINUED IN [place]
[2021-10-14] MEDS: baclofen 10 mg Tablet PO (07:59)
[2021-10-14] MEDS: levETIRAcetam 500 mg Tablet 1000 MG PO (07:59)
[2021-10-14] MEDS: levoFLOXacin 500 mg Tablet PO (08:00)
[2021-10-14 08:40] VITALS: BP 132/83; PULSE 99; RESP 18; TEMP 36.8; O2SAT 97
[2021-10-14] MEDS: gabapentin 400 mg Capsule 1200 MG PO (08:42)
[2021-10-14] MEDS: nicotine 4 mg lozenge MUCOUS MEM ×2 (08:42→14:51)
[2021-10-14] MEDS: ibuprofen 600 mg Tablet PO ×2 (08:45→09:30)
--- NOTE | 2021-10-14 08:46 | PC.NURSE ---
Patient at nurses station with c/o right scrotum pain rated 10 . Motrin 600 mg po given for this.
--- NOTE | 2021-10-14 13:27 | PM.PN ---
Subjective Subjective: Following up on the urine studies sent for epididymitis and scrotal pain from the ER. Urine studies are negative for chlamydia and gonorrhea but are consistent with trichomonas vaginalis. Patient is currently treated Neuropsych Unit for suicidal ideation and depression. Vitals/I&O/Wt Last Vital Signs Temp 98.2 F 10/14/21 08:40 Pulse 99 10/14/21 08:40 Resp 18 10/14/21 08:40 BP 132/83 10/14/21 08:40 Pulse Ox 97 10/14/21 08:40 O2 Del Method 10/14/21 08:40 Weight last 48 hrs Weight 87.09 kg Physical Exam Narrative: General: Acute distress because of pain, AO x3, depressed, anxious HEENT: PERRLA, pupils bilaterally equal and reactive Chest: Bilateral normal sterile breath sounds, no added air sound, occasional rhonchi. CVS: S1-S2 regular, no murmurs, no tachycardia, no gallops, no rubs Abdomen: Soft, nontender, no organomegaly, bowel sounds present, morbidly obese Neuro: No focal deficits, no facial deformity, AO x3, power 5/5 in all limbs Testicle examination: Right testicular area slightly swollen than left, mild tenderness, no penile discharge Data : 10/12/21 14:56 10/12/21 14:56 Micro: Microbiology 10/12/21 16:15 Chlamydia trachomatis ([facility]) - Final Urine Random Neisseria gonorrhoeae ([facility]) - Final A&P Assessment and plan (1) Epididymitis: As seen on ultrasound. HIV negative. Received treatment with 500 mg IM of ceftriaxone, 1 g of oral azithromycin. Currently on Levaquin 500 mg daily. Day 2/5. Urine studies negative for chlamydia and gonorrhea but positive for trichomonas. Stop Levaquin. Will give Flagyl 2 g one-time dose. This should protect him from breaking the treatment if he if discharged sooner. Patient should refrain from sexual activities for at least 7 days and until the symptoms are resolved. Status: Acute (2) Depression with suicidal ideation: As per primary team Status: Acute (3) Pain in testicle: Status: Acute (4) Trichomonal urethritis in male: Status: Acute Plan Continue other chronic medications including Keppra, gabapentin. History of hepatitis C positive. Thank you for involving us in care of Mr. Cota. Please call back if with any questions. Care discussed in detail with patient's primary team and nurse. 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
[2021-10-14] MEDS: metoprolol tartrate 25 mg Tablet PO (14:24)
[2021-10-14] MEDS: metroNIDAZOLE 500 MG Tablet 2000 MG PO (14:50)
[2021-10-14 15:21] VITALS: BP 132/83; PULSE 99; RESP 18; TEMP 36.8; O2SAT 97
--- NOTE | 2021-10-14 15:21 | W.PM.NPUDCS ---
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 Hospital Course Hospital Course He slowly acclimated to the individual, group and milieu therapies provided. He was open to initiating some medications but not others. And slowly began to stabilize. He was a voluntary patient and was getting impatient about discharge plans and eventually requested to be discharged AGAINST MEDICAL ADVICE. He had been evaluated and deemed to be absent credible lethality, had a safe place to go and was able to contract for safety outside of the hospital prior to discharge. He did have modest improvement during the stay. During the hospitalization, patient had routine laboratory studies which were within normal limits except for few outliers. Additionally there was a general medical evaluation which was also within normal limits and revealed no new acute processes. Discharge Summary: At the time of discharge, he denied psychosis or lethality. Mood and anxiety were well managed. Patient endorsed a plan to avoid all drugs of abuse and follow-up with the aftercare recommendations of the treatment team. Patient was evaluated and deemed to be absent credible lethality, and was voluntary and not desiring to stay in the hospital any longer, so was discharged. Involuntary Hold Information 96 Hour Hold: 96 Hour Involuntary Admission: No Mental Status Exam MSE Comments: This is a well-nourished well-developed white male in hospital scrubs with limited grooming and eye contact. No abnormal movements except for psychomotor retardation juxtaposed with psychomotor agitation. Mostly cooperative with exam in mild distress at times. Speech was slurred and mostly decreased rate and volume. Mood described as fine, affect congruent. Thought process linear. Thought content: Patient denied suicidal or homicidal ideation, there were no delusions reported but he was guarded and appeared to have paranoia or possible persecutory thinking, he denied any auditory or visual hallucinations. Attention and concentration were limited and memory was unreliable but none were formally tested. He is mostly arousable and oriented x3. Insight is poor, judgment is limited and impulse control is impaired. Discharge Data Studies Completed and Pending: Completed Studies During Hospitalization Category Date Time Status XR chest 1V jason ble [id number] Stat Exams 10/12/21 14:37 Completed US scrotum [id number] Stat Ultrasound 10/12/21 14:56 Completed Radiology Impressions Chest X-Ray 10/12/21 14:37 IMPRESSION: Stable chest with no acute abnormality. Scrotum Ultrasound 10/12/21 14:56 IMPRESSION: 1. Findings compatible with epididymitis RIGHT greater than LEFT. 2. Small bilateral hydroceles. Diffuse scrotal edema skin thickening RIGHT greater than LEFT. 3. No abscess. 4. No evidence of orchitis. Laboratory Results WBC 12.6 10^3/uL (4.0 -10.0) H 10/12/21 14:56 RBC 4.89 10^6/uL (4.1 -5.3) 10/12/21 14:56 Hgb 15.4 g/dL (11.7-1 6.6) 10/12/21 14:56 Hct 47.1 % (42.0-52.0 ) 10/12/21 14:56 MCV 96.3 fl (80-94) H 10/12/21 14:56 MCH 31.5 pg (28.0-34. 0) 10/12/21 14:56 MCHC 32.7 g/dL (30.0-3 6.0) 10/12/21 14:56 RDW 12.3 % (12.1-15.1 ) 10/12/21 14:56 Plt Count 213 10^3/cmm (130 -400) 10/12/21 14:56 MPV 9.9 fL (7.4-10.4) 10/12/21 14:56 Neut % (Auto) 79.1 % 10/12/21 14:56 Lymph % (Auto) 10.7 % 10/12/21 14:56 [place] % (Auto) 8.3 % 10/12/21 14:56 Eos % (Auto) 1.0 % 10/12/21 14:56 Baso % (Auto) 0.4 % 10/12/21 14:56 Neut # (Auto) 9.95 10^3/uL (1.8 -7.7) H 10/12/21 14:56 Lymph # (Auto) 1.4 10^3/uL (0.8- 4.8) 10/12/21 14:56 [place] # (Auto) 1.1 10^3/uL (0.2- 0.9) H 10/12/21 14:56 Eos # (Auto) 0.1 10^3/uL (0.0- 0.8) 10/12/21 14:56 Baso # (Auto) 0.1 10^3/uL (0.0- 0.1) 10/12/21 14:56 Nucleated RBC % (a uto) 0 % 10/12/21 14:56 Nucleated RBCs # 0.0 /100WBC 10/12/21 14:56 Sodium 141 mmol/L (136-1 45) 10/12/21 14:56 Potassium 4.1 mmol/L (3.5-5 .1) 10/12/21 14:56 Chloride 103 mmol/L (98-10 7) 10/12/21 14:56 Carbon Dioxide 24 mmol/L (22-29) 10/12/21 14:56 Anion Gap 18.1 (5-19) 10/12/21 14:56 BUN 5 mg/dL (6-20) L 10/12/21 14:56 Creatinine 0.8 mg/dL (0.7-1. 2) 10/12/21 14:56 GFR Calculation 111.3 mL/min (90- 130) 10/12/21 14:56 Glucose 71 mg/dL (65-115) 10/12/21 14:56 Calculated Osmolal ity 288 mOsm/kg (285- 295) 10/12/21 14:56 Calcium 9.3 mg/dL (8.5-10 .5) 10/12/21 14:56 Troponin T Baselin e 6 ng/L (0-15) 10/12/21 14:56 Urine Color Yellow (Yellow) 10/12/21 16:15 Urine Appearance Cloudy (CLEAR) 10/12/21 16:15 Urine pH 9 (5-7) H 10/12/21 16:15 Ur Specific Gravit y 1.015 (1.005-1.0 30) 10/12/21 16:15 Urine Protein Neg (Negative) 10/12/21 16:15 Urine Glucose (UA) Norm (Normal) 10/12/21 16:15 Urine Ketones Negative (Negati ve) 10/12/21 16:15 Urine Blood Neg (Negative) 10/12/21 16:15 Urine Nitrate Negative (Negati ve) 10/12/21 16:15 Urine Bilirubin Neg (Negative) 10/12/21 16:15 Prot Sulfosalicyli c Acd Negative (Negati ve) 10/12/21 16:15 Urine Urobilinogen 1 mg/dL (Negative ) H 10/12/21 16:15 Ur Leukocyte Sarah ase 1+ (Negative) H 10/12/21 16:15 Urine RBC 0-4 /hpf (0-2) H 10/12/21 16:15 Urine WBC 5-10 /hpf (0-5) H 10/12/21 16:15 Ur Squamous Epith Cells 0-4 /hpf (0-5) H 10/12/21 16:15 Amorphous Sediment 1+ /hpf 10/12/21 16:15 Urine Bacteria 1+ /hpf (NONE) H 10/12/21 16:15 Salicylates < 0.3 mg/dL (3-10 ) L 10/12/21 14:56 Urine Opiates Scre en Negative ng/mL (N egative) 10/12/21 16:15 Acetaminophen < 5.0 ug/mL (10-3 0) L 10/12/21 14:56 Ur Barbiturates Sc reen Negative ng/mL (N egative) 10/12/21 16:15 Ur Phencyclidine S crn Negative ng/mL (N egative) 10/12/21 16:15 Ur Amphetamines Sc reen Negative ng/mL (N egative) 10/12/21 16:15 U Benzodiazepines Scrn Negative ng/mL (N egative) 10/12/21 16:15 Urine Cocaine Scre en Negative ng/mL (N egative) 10/12/21 16:15 U Marijuana (THC) Screen Positive ng/mL (N egative) H 10/12/21 16:15 HIV 1&2 Ab & HIV 1 Ag Non-reactive (No n-Reactiv) 10/12/21 18:37 HIV 1&2 Antibody Non-reactive (No n-Reactiv) 10/12/21 18:37 SARS-CoV-2 Ag (Rap id) Negative (Negati ve) 10/12/21 14:45 Vitals: Last Vital Signs Temp 98.2 F 10/14/21 15:21 Pulse 99 10/14/21 15:21 Resp 18 10/14/21 15:21 BP 132/83 10/14/21 15:21 Pulse Ox 97 10/14/21 15:21 O2 Del Method 10/14/21 08:40 Discharge Plan Discharge Patient Disposition: Left Against Medical Advice Condition: Stable Prescriptions: No Action baclofen 10 mg tablet 10 mg PO BID Qty: 60 2RF levetiracetam 1,000 mg tablet 1,000 mg PO BID Qty: 60 2RF gabapentin 600 mg tablet 1,200 mg PO BID Qty: 120 2RF albuterol sulfate [ProAir HFA] 90 mcg/actuation HFA aerosol inhaler 2 inh INHALATION Q4H PRN (Reason: shortness of breath or wheezing) Qty: 18 0RF Discharge Orders: Discharge Order (Routine); Ordered 10/14/21 Ordered By: Royce Mccray Referrals: [facility] [place] [facility] [Outside] - 4-7 days [facility] [Outside] - 4-7 days Pillo Duval DO [Primary Care Provider] - Discharge Diet: Regular Discharge Activity: Resume usual activity Patient Instructions: Metronidazole (By mouth), Marijuana Abuse, Epididymitis (GEN), Trichomoniasis (DC), Suicide Prevention (DC) Discharge Attestations NPU Time Spent in Discharge Care*: less than 30 min Specific Discharge Activities: Specific discharge activities: educating patient, discussing with rn field case manager/social workers/dc planners, documenting/other paperwork and evaluating patient/reviewing data Coding Level of Care Code Acute Chg FW DC note Diagnoses Epididymitis N45.1 Depression with suicidal ideation F32.A; R45.851 Pain in testicle N50.819 Trichomonal urethritis in male A59.03
== END 2021-10-14 15:15 | disposition left against medical advice (07) | DRG 881 ==
LOC: ER 14:56 → NP 18:55
PROVIDERS: Student in an Organized Health Care Education/Training Program; Admitting Provider Psychiatry & Neurology Psychiatry; Emergency Provider Emergency Medicine; PCP Family Medicine; Visit Provider Psychiatry & Neurology Psychiatry
DX: F32.A Depression, unspecified (principal); N43.1 Infected hydrocele; R45.851 Suicidal ideations; Z53.29 Procedure and treatment not carried out because of patient's decision for other reasons; A56.19 Other chlamydial genitourinary infection; Z86.19 Personal history of other infectious and parasitic diseases; G40.909 Epilepsy, unspecified, not intractable, without status epilepticus; F41.9 Anxiety disorder, unspecified; G62.9 Polyneuropathy, unspecified; F17.200 Nicotine dependence, unspecified, uncomplicated; F12.90 Cannabis use, unspecified, uncomplicated; F63.9 Impulse disorder, unspecified; F60.9 Personality disorder, unspecified
CPT/HCPCS: 71045; 76870; 80048; 80306; 80307; 81001; 84484; 85025; 87426; 87491; 87591; 87806; 93005; 96365; 96372; 96375; 97165; 99285; J0696; J1170; J1885; J3490; Q0144